=== PATIENT | female | born 1960 | race Caucasian/White ===

== ENCOUNTER 2023-12-18 11:24 | Inpatient (IN) | payer MEDICAID ==
[~2023-12-18] VITALS: Ht 162.6 cm; Wt 94.0 kg
[~2023-12-18 11:24] MED LIST: HALO10TA21 PO; MULT-1203 PO; PANT-31 PO; QUET100T PO; SENN1TAB77 PO; ZOLP-280 PO
[2023-12-18] MEDS ORDERED: 0.9% SODIUM CHLORIDE 10 ML SYRINGE IVP PRN (11:45)
[2023-12-18] MEDS ORDERED: POTA-206 PO (11:53)
[2023-12-18] MEDS ORDERED: GABA-1181 PO (11:53)
[2023-12-18] MEDS ORDERED: VALP250C48 PO ×2 (11:53→13:44)
[2023-12-18] MEDS ORDERED: DONE-52 PO (11:53)
[2023-12-18] MEDS ORDERED: INSU100I15 SQ (11:53)
[2023-12-18] MEDS ORDERED: DULA0.75 SQ ×2 (11:53→13:44)
[2023-12-18] MEDS ORDERED: LACT10SO9 PO (11:53)
[2023-12-18] MEDS ORDERED: HYDR-4527 PO (11:53)
[2023-12-18] MEDS ORDERED: INSU3INS3 SQ (11:53)
[2023-12-18] MEDS ORDERED: FURO40TA5 PO (11:53)
[2023-12-18] MEDS ORDERED: HALO100V36 IM (11:53)
[2023-12-18] MEDS ORDERED: MEMA5TAB42 PO (11:53)
[2023-12-18] MEDS ORDERED: MIRT7.5T11 PO (11:53)
[2023-12-18] MEDS ORDERED: SODIUM CHLORIDE 0.9% 2,650 ML IV ONE (12:00)
[2023-12-18] MEDS ORDERED: LORazepam 2 MG/ML VIAL IM ONE (12:15)
[2023-12-18] MEDS ORDERED: DiphenhydrAMINE HCL 50 MG/ML VIAL IM ONE (12:15)
[2023-12-18] MEDS ORDERED: HALOPERIDOL LACTATE 5 MG/ML VIAL IM ONE ×2 (12:15→22:30)
[2023-12-18] MEDS ORDERED: DiphenhydrAMINE HCL 50 MG/ML VIAL IVP ONE (12:15)
[2023-12-18 12:50] LABS: ANION GAP 8 mmol/L (8-16); CALCIUM, TOTAL 9.3 mg/dL (8.8-10.5); CARBON DIOXIDE 30 mmol/L (22-29); CHLORIDE 102 mmol/L (98-107); GLOMERULAR FILTR. RATE CALC 56 mL/min (>60); GLUCOSE,RANDOM 139 mg/dL (70-110); POTASSIUM 3.6 mmol/L (3.5-5.1); SODIUM SERUM 140 mmol/L (136-145); UREA NITROGEN, BLOOD 29 mg/dL (7-18)
[2023-12-18 12:52] LABS: BASOPHILS % (AUTO) 0.2 % (0.0-2.0); EOSINOPHILS % (AUTO) 0 % (1.0-6.0); HEMATOCRIT 39.1 % (36-46); LYMPHOCYTES # (AUTO) 0.8 K/uL (1.0-4.8); LYMPHOCYTES % (AUTO) 31.8 % (22.0-44.0); MEAN CORPUSCULAR HEMOGLOBIN 28.5 pg (26.0-34.0); MEAN CORPUSCULAR HGB CONC 33.3 G/dL (31.0-37.0); MEAN CORPUSCULAR VOLUME 86 fL (80-100); MONOCYTES # (AUTO) 0.4 K/uL (0.1-1.0); NEUTROPHILS # (AUTO) 1.2 K/uL (1.8-7.7); RED BLOOD CELL COUNT(AUTO) 4.57 MIL/uL (4.00-5.20); RED CELL DISTRIBUTION WIDTH 16.2 % (11.5-14.5); WHITE BLOOD COUNT (AUTO) 2.4 K/uL (4.5-11.0)
[2023-12-18 12:53] LABS: INR 1.2 (0.9-1.1); PROTHROMBIN TIME 12.4 SEC (9.4-11.6)
[2023-12-18 12:59] LABS: LACTIC ACID 1.6 mmol/L (0.4-2.0)
[2023-12-18 13:05] LABS: ALANINE AMINOTRANSFERASE 39 U/L (12-78); ALBUMIN 3.5 g/dL (3.4-5.0); ALKALINE PHOSPHATASE 80 U/L (46-116); ASPARTATE AMINOTRANSFERASE 110 U/L (15-37); BILIRUBIN,TOTAL 1.1 mg/dL (0.1-1.0); TOTAL PROTEIN, SERUM 7.9 g/dL (6.4-8.2)
[2023-12-18 13:23] LABS: PLATELET COUNT (AUTO) 55 K/uL (150-450)
[2023-12-18] MEDS ORDERED: SENN-376 PO (13:44)
[2023-12-18] MEDS ORDERED: LACT10SO10 PO (13:44)
[2023-12-18] MEDS ORDERED: HALO50VI29 IM (13:44)
[2023-12-18] MEDS ORDERED: POLY17PO47 PO (13:44)
[2023-12-18] MEDS ORDERED: POTA-364 PO (13:44)
[2023-12-18] MEDS ORDERED: [UNRECOGNIZED DRUG - CODE] PO (13:44)
[2023-12-18] MEDS ORDERED: MELA3CAP2 PO (13:44)
[2023-12-18] MEDS ORDERED: ACET-784 PO (13:44)
[2023-12-18] MEDS ORDERED: INSLAN SQ (13:44)
[2023-12-18] MEDS ORDERED: MAGN-169 PO (13:44)
[2023-12-18] MEDS ORDERED: NA P133E4 PR (13:44)
[2023-12-18 14:11] LABS: APPEARANCE,URINE CLEAR (CLEAR); BILIRUBIN,URINE NEGATIVE (NEGATIVE); COLOR,URINE YELLOW (YELLOW); GLUCOSE, URINE (UA) NEGATIVE (NEGATIVE); KETONES,URINE TRACE mg/dL (NEGATIVE); LEUKOCYTE ESTERASE ,URINE NEGATIVE (NEGATIVE); NITRATE,URINE NEGATIVE (NEGATIVE); OCCULT BLOOD,URINE NEGATIVE (NEGATIVE); PH,URINE 5.5 (5.0-8.0); PROTEIN,URINE TRACE mg/dL (NEGATIVE); SPECIFIC GRAVITIY, URINE 1.024 (1.003-1.030); UROBILINOGEN,URINE <=1.0 mg/dL (<=1.0)
[2023-12-18] MEDS ORDERED: LEVOFLOXACIN 750 MG/D5% WATER 150 ML IV ONE (15:00)
[2023-12-18] MEDS ORDERED: ZIPRASIDONE MESYLATE 20 MG/VIAL IM ONE (15:00)
[2023-12-18] MEDS ORDERED: ZOLPIDEM TARTRATE 5 MG TABLET PO PRN (15:45)
[2023-12-18] MEDS ORDERED: ONDANSETRON HCL 4 MG/2 ML VIAL IVP PRN (15:45)
[2023-12-18] MEDS ORDERED: ACETAMINOPHEN 325 MG TABLET PO PRN (15:45)
[2023-12-18] MEDS ORDERED: BISACODYL 10 MG RECTAL RECTAL SUPPOSITORY PR PRN (15:45)
[2023-12-18] MEDS ORDERED: MAGNESIUM HYDROXIDE SUSPENSION 30 ML UDCUP PO PRN (15:45)
[2023-12-18] MEDS: GABAPENTIN 300 MG CAPSULE PO SCH ×2 (15:58→21:00)
[2023-12-18] MEDS: HEPARIN SODIUM,PORCINE 5,000 UNITS/ML VIAL SQ SCH (15:58)
[2023-12-18] MEDS: DOCUSATE SODIUM 100 MG CAPSULE PO SCH (20:06)
[2023-12-18] MEDS: FUROSEMIDE 40 MG TABLET PO SCH (21:00)
[2023-12-18] MEDS: MEMANTINE HCL 5 MG TABLET PO SCH (21:00)
[2023-12-18] MEDS: VALPROIC ACID 250 MG CAPSULE PO SCH (21:00)
[2023-12-18] MEDS: LACTULOSE 200 GM/300 ML RECTAL SOLUTION PR SCH (21:59)
[2023-12-18] MEDS: CefTRIAXone 1 GM/DEXTROSE 50 ML IV SCH (23:06)
[2023-12-19] MEDS: HEPARIN SODIUM,PORCINE 5,000 UNITS/ML VIAL SQ SCH ×3 (00:06→15:35)
[2023-12-19] MEDS: AZITHROMYCIN 500 MG/NS 250 ML IV SCH (00:06)
[2023-12-19] MEDS ORDERED: POTASSIUM CHLORIDE 20 MEQ ER TABLET PO ONE (03:00)
[2023-12-19 07:09] LABS: HEMATOCRIT 34.8 % (36-46); HEMOGLOBIN 11.8 g/dL (12.0-16.0); MEAN CORPUSCULAR HEMOGLOBIN 29.2 pg (26.0-34.0); MEAN CORPUSCULAR HGB CONC 34.1 G/dL (31.0-37.0); MEAN CORPUSCULAR VOLUME 86 fL (80-100); RED BLOOD CELL COUNT(AUTO) 4.06 MIL/uL (4.00-5.20); RED CELL DISTRIBUTION WIDTH 16.2 % (11.5-14.5); WHITE BLOOD COUNT (AUTO) 2.3 K/uL (4.5-11.0)
[2023-12-19] MEDS: DOCUSATE SODIUM 100 MG CAPSULE PO SCH ×3 (09:00→22:10)
[2023-12-19 09:07] LABS: ANION GAP 10 mmol/L (8-16); CARBON DIOXIDE 27 mmol/L (22-29); CHLORIDE 106 mmol/L (98-107); CREATININE 0.76 mg/dL (0.60-1.30); GLOMERULAR FILTR. RATE CALC > 60 mL/min (>60); GLUCOSE,RANDOM 122 mg/dL (70-110); POTASSIUM 3.7 mmol/L (3.5-5.1); SODIUM SERUM 143 mmol/L (136-145); UREA NITROGEN, BLOOD 20 mg/dL (7-18)
[2023-12-19] MEDS: PANTOPRAZOLE SODIUM 40 MG DR TABLET PO SCH (09:12)
[2023-12-19] MEDS: MEMANTINE HCL 5 MG TABLET PO SCH ×2 (09:13→23:40)
[2023-12-19] MEDS: DONEPEZIL HCL 5 MG TABLET PO SCH (09:13)
[2023-12-19] MEDS: FUROSEMIDE 40 MG TABLET PO SCH ×2 (09:13→22:10)
[2023-12-19 09:21] LABS: PLATELET COUNT (AUTO) 50 K/uL (150-450)
[2023-12-19 09:23] LABS: BAND NEUTROPHILS % (MANUAL) 2 % (0-5); LYMPHOCYTES % (MANUAL) 41 % (22-44); MONOCYTES % (MANUAL) 3 % (2-9); SEGMENTED NEUTROPHILS % 54 % (40-70); TOTAL CELLS COUNTED 100
[2023-12-19 09:24] LABS: RBC MORPHOLOGY COMMENT NORMAL RBC MORPH
[2023-12-19] MEDS: VALPROIC ACID 250 MG CAPSULE PO SCH ×3 (09:58→23:40)
[2023-12-19] MEDS: GABAPENTIN 300 MG CAPSULE PO SCH ×4 (09:58→22:10)
[2023-12-19] MEDS: LACTULOSE 200 GM/300 ML RECTAL SOLUTION PR SCH ×2 (10:11→21:00)
[2023-12-19 12:23] LABS: COVID AG,FIA SOURCE NASAL SWAB
[2023-12-19 12:49] LABS: SARS-COV2 (COVID) ANTIGEN,FIA Negative (Negative)
[2023-12-19 20:55] VITALS: BP 162/73; PULSE 111; RESP 18; TEMP 97.7
[2023-12-19 20:58] VITALS: BP 162/73; PULSE 111; RESP 18; TEMP 97.7; O2SAT 98
[2023-12-19] MEDS: LACTULOSE 20 GM/30 ML SOLUTION UDCUP PO SCH (22:10)
[2023-12-19] MEDS: BREXPIPRAZOLE 1 MG TABLET PO SCH (23:41)
[2023-12-20] MEDS: HEPARIN SODIUM,PORCINE 5,000 UNITS/ML VIAL SQ SCH ×3 (00:38→16:00)
[2023-12-20] MEDS ORDERED: SODIUM CHLORIDE 0.9% 500 ML IV ONE (00:43)
[2023-12-20] MEDS: CefTRIAXone 1 GM/DEXTROSE 50 ML IV SCH (01:14)
[2023-12-20] MEDS: AZITHROMYCIN 500 MG/NS 250 ML IV SCH (01:38)
[2023-12-20 05:00] VITALS: BP 110/86; PULSE 109; RESP 18; TEMP 97.6
[2023-12-20] MEDS: DOCUSATE SODIUM 100 MG CAPSULE PO SCH ×2 (08:38→20:31)
[2023-12-20] MEDS: GABAPENTIN 300 MG CAPSULE PO SCH ×4 (08:38→20:31)
[2023-12-20] MEDS: FUROSEMIDE 40 MG TABLET PO SCH ×2 (08:38→20:31)
[2023-12-20] MEDS: PANTOPRAZOLE SODIUM 40 MG DR TABLET PO SCH (08:38)
[2023-12-20] MEDS: MEMANTINE HCL 5 MG TABLET PO SCH ×2 (08:40→20:31)
[2023-12-20] MEDS: DONEPEZIL HCL 5 MG TABLET PO SCH (08:40)
[2023-12-20] MEDS: LACTULOSE 20 GM/30 ML SOLUTION UDCUP PO SCH ×2 (08:40→20:30)
[2023-12-20] MEDS: VALPROIC ACID 250 MG CAPSULE PO SCH ×3 (08:42→20:31)
[2023-12-20 09:29] VITALS: BP 153/95; PULSE 100; RESP 20; TEMP 98
[2023-12-20 10:55] LABS: HEMATOCRIT 38.1 % (36-46); HEMOGLOBIN 12.6 g/dL (12.0-16.0); MEAN CORPUSCULAR HEMOGLOBIN 28.6 pg (26.0-34.0); MEAN CORPUSCULAR HGB CONC 33.1 G/dL (31.0-37.0); MEAN CORPUSCULAR VOLUME 87 fL (80-100); PLATELET COUNT (AUTO) 66 K/uL (150-450); WHITE BLOOD COUNT (AUTO) 2.2 K/uL (4.5-11.0)
[2023-12-20 11:15] LABS: CREATININE 1.01 mg/dL (0.60-1.30); POTASSIUM 3.2 mmol/L (3.5-5.1)
[2023-12-20 11:34] LABS: BAND NEUTROPHILS % (MANUAL) 2 % (0-5); LYMPHOCYTES % (MANUAL) 39 % (22-44); MONOCYTES % (MANUAL) 1 % (2-9); RBC MORPHOLOGY COMMENT NORMAL RBC MORPH; SEGMENTED NEUTROPHILS % 58 % (40-70); TOTAL CELLS COUNTED 100
[2023-12-20] MEDS: BREXPIPRAZOLE 1 MG TABLET PO PRN (12:41)
[2023-12-20 16:13] VITALS: BP 163/84; PULSE 110; RESP 20; TEMP 98.8
[2023-12-20] MEDS ORDERED: POTASSIUM CHL 10 MEQ/WATER 50 ML IV PRN (19:45)
[2023-12-20] MEDS ORDERED: POTASSIUM CHLORIDE 20 MEQ ER TABLET PO PRN (19:45)
[2023-12-20] MEDS: BREXPIPRAZOLE 1 MG TABLET PO SCH (20:33)
[2023-12-21] MEDS: HEPARIN SODIUM,PORCINE 5,000 UNITS/ML VIAL SQ SCH (00:24)
[2023-12-21] MEDS: CefTRIAXone 1 GM/DEXTROSE 50 ML IV SCH (00:58)
[2023-12-21 03:00] VITALS: BP 148/61; PULSE 100; RESP 20; TEMP 97.7
[2023-12-21] MEDS: BREXPIPRAZOLE 1 MG TABLET PO PRN ×2 (03:05→08:06)
[2023-12-21] MEDS: AZITHROMYCIN 500 MG/NS 250 ML IV SCH (03:07)
[2023-12-21 06:02] LABS: GLUCOMETER DEV NAME(LOC) 6S.2; GLUCOSE,POINT OF CARE 168 MG/DL (70-110)
[2023-12-21 07:27] LABS: BASOPHILS % (AUTO) 0.1 % (0.0-2.0); EOSINOPHILS % (AUTO) 0 % (1.0-6.0); HEMATOCRIT 40.8 % (36-46); HEMOGLOBIN 13.3 g/dL (12.0-16.0); LYMPHOCYTES % (AUTO) 39.2 % (22.0-44.0); MEAN CORPUSCULAR HEMOGLOBIN 28.6 pg (26.0-34.0); MEAN CORPUSCULAR HGB CONC 32.6 G/dL (31.0-37.0); MEAN CORPUSCULAR VOLUME 88 fL (80-100); MONOCYTES # (AUTO) 0.4 K/uL (0.1-1.0); MONOCYTES % (AUTO) 16.7 % (2.0-9.0); NEUTROPHILS # (AUTO) 1.2 K/uL (1.8-7.7); PLATELET COUNT (AUTO) 69 K/uL (150-450); RED BLOOD CELL COUNT(AUTO) 4.64 MIL/uL (4.00-5.20); RED CELL DISTRIBUTION WIDTH 16.1 % (11.5-14.5); WHITE BLOOD COUNT (AUTO) 2.7 K/uL (4.5-11.0)
[2023-12-21 07:44] LABS: ANION GAP 9 mmol/L (8-16); CALCIUM, TOTAL 9.2 mg/dL (8.8-10.5); CARBON DIOXIDE 28 mmol/L (22-29); CHLORIDE 106 mmol/L (98-107); CREATININE 0.88 mg/dL (0.60-1.30); GLOMERULAR FILTR. RATE CALC > 60 mL/min (>60); GLUCOSE,RANDOM 180 mg/dL (70-110); POTASSIUM 3.5 mmol/L (3.5-5.1); SODIUM SERUM 143 mmol/L (136-145); UREA NITROGEN, BLOOD 15 mg/dL (7-18)
[2023-12-21] MEDS: PANTOPRAZOLE SODIUM 40 MG DR TABLET PO SCH (08:04)
[2023-12-21] MEDS: MEMANTINE HCL 5 MG TABLET PO SCH (08:04)
[2023-12-21] MEDS: DOCUSATE SODIUM 100 MG CAPSULE PO SCH (08:04)
[2023-12-21] MEDS: GABAPENTIN 300 MG CAPSULE PO SCH ×2 (08:04→12:04)
[2023-12-21] MEDS: DONEPEZIL HCL 5 MG TABLET PO SCH (08:04)
[2023-12-21] MEDS: VALPROIC ACID 250 MG CAPSULE PO SCH (08:06)
[2023-12-21 10:10] VITALS: BP 117/75; PULSE 95; RESP 18; TEMP 97.7
[2023-12-21] MEDS: LACTULOSE 20 GM/30 ML SOLUTION UDCUP PO SCH (10:11)
[2023-12-21] MEDS: FUROSEMIDE 40 MG TABLET PO SCH (10:11)
[2023-12-21] MEDS ORDERED: AZIT-104 PO (12:09)
[2023-12-21] MEDS ORDERED: LACT10SO10 PO (12:15)
[2023-12-21] MEDS ORDERED: BREX0.25 PO (12:19)
[2023-12-21] MEDS ORDERED: PANT-31 PO (12:22)
[2023-12-21] MEDS ORDERED: ZOLP-280 PO (12:23)
== END 2023-12-21 16:00 | DRG 52 ==
LOC: EMS 11:24 → AHU 23:05 → 5S 12-19 18:52 → 6S 12-19 19:37
PROVIDERS: ADMIT Internal Medicine; ATTEND Internal Medicine
DX: G93.41 Metabolic encephalopathy (principal); K76.82 Hepatic encephalopathy; E11.9 Type 2 diabetes mellitus without complications; E78.5 Hyperlipidemia, unspecified; F03.93 Unspecified dementia, unspecified severity, with mood disturbance; F31.9 Bipolar disorder, unspecified; K74.60 Unspecified cirrhosis of liver; I10 Essential (primary) hypertension; F20.9 Schizophrenia, unspecified; Z78.1 Physical restraint status; Z79.899 Other long term (current) drug therapy; Z88.0 Allergy status to penicillin; Z88.5 Allergy status to narcotic agent; Z88.8 Allergy status to other drugs, medicaments and biological substances; Z91.041 Radiographic dye allergy status
CPT/HCPCS: 70450; 71045; 80048; 80053; 81003; 82140; 82962; 83605; 84145; 85025; 85610; 87040; 93005; 99285; G0378; J0456; J0696; J1200; J1630; J1644; J1956; J2060; J3486; J7040; Q9967; 36415-L1; 36415-TC